=== PATIENT | male | born 1970 | race Caucasian/White ===

== ENCOUNTER 2022-12-07 18:46 | Emergency (ER) | payer BC ==
[~2022-12-07] VITALS: Ht 177.8 cm; Wt 72.6 kg
--- NOTE | 2022-12-07 21:10 | NUR ---
Patient was placed in the hallway due to ER inudated with patient. DR Alejandre evaluating patient in the Hallway. Triaged nurse is taking care of patient due other ER nurse have 4 patient already.
[2022-12-07] MEDS ORDERED: DIAZEPAM 5 MG TABLET ONE (21:35)
[2022-12-07] MEDS ORDERED: KETOROLAC TROMETHAMINE 30 MG INJ ONE (21:35)
[2022-12-07] MEDS: KETOROLAC TROMETHAMINE 30 MG INJ IM ONE (21:40)
[2022-12-07] MEDS: DIAZEPAM 2 MG TABLET PO ONE (21:40)
--- NOTE | 2022-12-07 22:00 | NUR ---
Patient sitting on wheelchair in the hallway due to no beds available in the ER at this time. Patient with no distress noted.
[2022-12-07] MEDS ORDERED: HYDROMORPHONE 1 MG/1 ML DISP.SYRIN ONE (23:02)
[2022-12-07] MEDS: HYDROMORPHONE 1 MG/1 ML DISP.SYRIN IM ONE (23:05)
[2022-12-07] MEDS ORDERED: CYCL10TA9 PO (23:30)
[2022-12-07] MEDS ORDERED: NAPR-1164 PO (23:30)
--- NOTE | 2022-12-08 00:01 | NUR ---
Patient discharged to home in stable condition with [employer] taking patient home. Written and verbal after care instructions given. Patient verbalizes understanding of instructions. Stressed follow up or return to ER for worsening s/s.
[2022-12-08 00:46] VITALS: BP 157/89
== END 2022-12-08 00:01 | disposition home or self-care (01) ==
LOC: ER 18:46
DX: M54.50 Low back pain, unspecified (principal)
CPT/HCPCS: 99284; 96372 ×2; J1885; J1170; A4663